=== PATIENT | female | born 1950 | race Caucasian/White ===

== ENCOUNTER → 2016-11-22 | Outpatient (CLI) | payer OTHER ==
[~2016-11-22] MED LIST: LISIPOW PO; OMEP40CA PO; SERT50TA PO
[2016-11-22 13:25] LABS: ESTIMATED AVERAGE GLUCOSE 111 mg/dl; HA1C FLAG Normal (Normal)
[2016-11-22 13:26] LABS: C-REACTIVE PROTEIN 1.45 mg/dl (0-0.29); THYROID STIMULATING HORMONE 1.7 uIu/ml (0.300-4.500)
[2016-11-23 16:56] LABS: MICROSOMAL AB <1 IU/ML (<9)
--- NOTE | 2016-11-28 10:52 | CODING QUERY MEDICAL NECESSITY ---
SUPPORTING DIAGNOSIS NEEDED A supporting diagnosis is required for the test/procedure performed on this patient in order for us to be reimbursed by the patient's insurance. Please provide a supporting diagnosis for the following test/procedure listed below next to the test name along with your signature. *If there is no additional diagnosis for this patient that would support the following test/procedure please document that below next to the test/procedure. Test(s)/Procedure(s) that require a supporting diagnosis: * GLYCATED HEMOGLOBIN DIAGNOSIS: * DOS: 11/22/16 Provider Signature: Date: Thank you Marla Mejia [facility] Information Management Once completed, please kindly fax back to [phone] For questions please call [phone]
== END | disposition home or self-care (01) ==
LOC: C.LABPBG 09:27
PROVIDERS: ATTEND Chiropractor
DX: M79.1 Myalgia (principal); R73.09 Other abnormal glucose

== ENCOUNTER → 2017-08-08 | Outpatient (CLI) | payer OTHER ==
--- NOTE | 2017-08-08 14:39 | DIAGNOSTIC IMAGING REPORT ---
ULTRASOUND-GUIDED FINE-NEEDLE ASPIRATION BIOPSY OF A LEFT LOBE THYROID NODULE CLINICAL HISTORY: THYROID NODULE COMPARISON STUDY: Outside thyroid ultrasonography dated 07/24/2017 FINDINGS: A timeout was performed. The risks the procedure were explained the patient informed consent was obtained. Under ultrasound guidance, 3 fine-needle aspiration biopsy samples of the enlarging partially solid and cystic left lobe thyroid nodule were obtained utilizing a 25-gauge needle. Initial pathologic review indicates satisfactory material for diagnosis. There were no immediate complications. IMPRESSION: Successful ultrasound-guided fine-needle aspiration biopsy of an indeterminate left lobe thyroid nodule. Electronically signed by: Wagner Bass M.D. 08/08/2017 2:38 PM Dictated Date/Time: 08/08/2017 2:37 PM
== END | disposition home or self-care (01) ==
LOC: C.ULTR 12:23
PROVIDERS: ATTEND Family Medicine
DX: E04.1 Nontoxic single thyroid nodule (principal)